=== PATIENT | female | born 1995 | race Caucasian/White ===

== ENCOUNTER 2018-07-26 10:52 | Inpatient (IN) ==
--- NOTE | 2018-07-26 11:13 | Emergency Department Note ---
ED Disposition Clinical Impression: Right lower quadrant pain Disposition: Still a Patient Condition on Discharge: Fair Referrals: Provider,Referral, [Primary Care Provider] - - Critical Care Critical Care Time: No Attestation: On , the high probability of a clinically significant, sudden or life t hreatening deterioration of the following system(s) required my full and direct attention, intervention and personal management. The time I documented below is in addition to time spent performing reported procedures but includes the following listed in this critical care notation. Medical Decision Making - Padilla Inquiry Pt receiving controlled substance: Yes Padilla was queried for this patient: No Risks and benefits of using a controlled substance: were not discussed with pt by me Vital Signs: 07/26/18 10:56 07/26/18 11:41 07/26/18 12:30 Temperature 99.3 F 100.3 F H Temperature Source Oral Oral Pulse Rate [Right Brachial] 92 H 90 69 Respiratory Rate 20 18 Blood Pressure [Right Arm] 129/57 L 121/68 123/71 Blood Pressure Mean [Right Arm] 81 85 88 Blood Pressure Source [Right Arm] Automatic Cuff Automatic Cuff Automatic Cuff Blood Pressure Position [Right Arm] Sitting Sitting Supine 02 Sat by Pulse Oximetry 97 97 97 Oxygen Delivery Method Room Air Room Air Room Air 07/26/18 13:10 07/26/18 14:00 07/26/18 14:08 Temperature 99.5 F Temperature Source Oral Pulse Rate [Right Brachial] 89 67 64 Respiratory Rate 18 18 Blood Pressure [Right Arm] 121/76 113/58 L 120/85 Blood Pressure Mean [Right Arm] 91 76 96 Blood Pressure Source [Right Arm] Automatic Cuff Automatic Cuff Manual Cuff/ Auscultation Blood Pressure Position [Right Arm] Sitting Supine Supine 02 Sat by Pulse Oximetry 94 L 97 98 Oxygen Delivery Method Room Air Room Air 07/26/18 14:30 Temperature 98.5 F Temperature Source Oral Pulse Rate [Right Brachial] 80 Respiratory Rate 18 Blood Pressure [Right Arm] 120/75 Blood Pressure Mean [Right Arm] 90 Blood Pressure Source [Right Arm] Manual Cuff/ Palpation Blood Pressure Position [Right Arm] Supine 02 Sat by Pulse Oximetry 98 Oxygen Delivery Method Room Air - Lab Data Lab Results 07/26/18 11:10: WBC 10.0, RBC 4.34, Hgb 12.1 L, Hct 37.2, MCV 85.6, MCH 27.9, MCHC 32.6, RDW 14.7, Plt Count 304, MPV 6.6 L, Neut % (Auto) 71.6, Lymph % (Auto) 20.5, [place] % (Auto) 6.9, Eos % (Auto) 0.7, Baso % (Auto) 0.3, Neut # (Auto) 7.1, Lymph # (Auto) 2.1, [place] # (Auto) 0.7, Eos # (Auto) 0.1, Baso # (Auto) 0.0 07/26/18 11:10: Sodium 139, Potassium 3.5, Chloride 102, Carbon Dioxide 26, Anion Gap 14.5, BUN 6 L, Creatinine 0.78, Estimated Creat Clear 109, Estimated GFR 92, Est GFR ( Amer) 111, Glucose 103, Calcium 8.2 L, Total Bilirubin 0.5, AST 12 L, ALT 37, Alkaline Phosphatase 88, Total Protein 7.2, Albumin 3.2 L , Globulin 4.0 H, Albumin/Globulin Ratio 0.8 L, Lipase 79 07/26/18 11:10: Serum HCG, Qual Negative 07/26/18 11:25: Urine Color Yellow, Urine Appearance Sl cloudy, Urine pH 6.0, Ur Specific [place] 1.015, Urine Protein Negative, Urine Glucose (UA) Negative, Urine Ketones Negative, Urine Blood Trace-l, Urine Nitrate Negative, Urine Bilirubin Negative, Urine Urobilinogen 0.2, Ur Leukocyte Esterase 1+ A, Urine RBC None, Urine WBC 3-5, Ur Squamous Epith Cells 5-10, Urine Bacteria 1+ 07/26/18 14:57: POC Glucose 94 Result diagrams: 07/26/18 11:10 07/26/18 11:10 Orders (Tests/Meds): ED MEDICATIONS Generic Name Dose Route Start Last Admin Trade Name Freq PRN Reason Stop Dose Admin Sodium Chloride 1,000 mls @ 125 mls/hr 07/26/18 13:45 07/26/18 13:59 Sod Chlor 0.9% 1000ml Bag IV 08/25/18 13:44 125 mls/hr .Q8H MATEO Administration Discontinued Medications Generic Name Dose Route Start Last Admin Trade Name Freq PRN Reason Stop Dose Admin Acetaminophen 650 mg 07/26/18 12:36 07/26/18 12:38 Acetaminophen 325mg Tab PO 07/26/18 12:37 650 mg ONCE ONE Administration Albuterol/Ipratropium 3 ml 07/26/18 13:16 07/26/18 13:34 Duoneb 3ml Neb IH 07/26/18 13:17 Not Given ONCE ONE Hydromorphone HCl 1 mg 07/26/18 13:44 07/26/18 14:10 Dilaudid 2mg/Ml Syringe IV 07/26/18 13:45 1 mg ONCE ONE Administration Ibuprofen 600 mg 07/26/18 13:44 07/26/18 13:58 Motrin 600mg Tablet PO 07/26/18 13:45 600 mg ONCE ONE Administration Iopamidol 75 ml 07/26/18 12:16 07/26/18 12:16 [id number]; 75ml Vial IV 07/26/18 12:17 75 ml ONCE ONE Administration Protocol Methylprednisolone Sodium Succinate 125 mg 07/26/18 13:16 07/26/18 13:34 Solu-Medrol 125mg/2ml Vial IV 07/26/18 13:17 Not Given ONCE ONE Morphine Sulfate 4 mg 07/26/18 11:18 07/26/18 11:40 Morphine 4mg/Ml Syringe IV 07/26/18 11:19 4 mg ONCE ONE Administration Morphine Sulfate 4 mg 07/26/18 12:30 07/26/18 12:33 Morphine 4mg/Ml Syringe IV 07/26/18 12:31 4 mg ONCE ONE Administration Ondansetron HCl 4 mg 07/26/18 11:18 07/26/18 11:40 Zofran 4mg/2ml Vial IV 07/26/18 11:19 4 mg ONCE ONE Administration Sodium Chloride 1,000 ml 07/26/18 11:19 07/26/18 11:40 Sod Chlor 0.9% 1000ml Bag IV 07/26/18 11:20 1,000 ml BOLUS ONE Administration Sodium Chloride 10 ml 07/26/18 12:16 07/26/18 12:16 Rad-Saline Flush 10ml Syringe IV 07/26/18 12:17 10 ml ONCE ONE Administration ORDERS Category Date Time Status Lactic Acid Stat Lab 07/26/18 11:10 Received Urinalysis and Microscopic Stat Lab 07/26/18 11:25 Ordered Blood Culture Stat Micro 07/26/18 11:10 Received Urine Culture Stat Micro 07/26/18 11:25 Received - CT Data CT Scan: Abdomen, Pelvis Time Received: 12:[address] Reviewed: Yes: I have viewed the radiologist's interpretation Findings Narrative: FINDINGS: The lung bases show no acute finding. There has been prior cholecystectomy. The liver, spleen, pancreas, adrenal glands, and kidneys have an unremarkable appearance. The appendix is poorly visualized. No definite evidence of appendicitis. No abscess, free air, or intestinal obstruction is apparent. No evidence of diverticulitis. Isodense changes are present in both ovaries suggesting bilateral ovarian cysts 2.8 cm on the right and 3.3 cm on the left. No pelvic mass or abnormal fluid collection is evident. There is degenerative disc disease at L5-S1 with mild retrolisthesis of L5. Mild edema is present in the abdominal wall and chronic nonspecific. IMPRESSION: 1. No acute abdominal or pelvic findings. No convincing evidence of appendicitis. 2. Bilateral ovarian cysts Dictated By: Leonid Leonard MD Signed By: <Electronically signed by Leonid Leonard MD in [place]> 07/26/18 1238 - Physician Consults Physician Consulted: Jose Time: 13:25 Reason -: Surgical Eval/Care Comment/Response: Requests that her [facility] physician be contacted for their input. Additional Consult: Owen Time: 14:06 Reason -: Gynocological Eval/Care Comment/Response: Doubts gynecologic source, but will consult. Request pelvic exam, cultures. Treat for PID with ampicillin, gentamicin, clindamycin. 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 He will consult. - Reevaluation(s) Time: 13:12 Reevaluation #1: Pain 6/2:10 doses of morphine. Still extremely tender in the right lower quadrant. Temperature has gone up. CT scan showed no convincing evidence of appendicitis, but appendix not well visualized and clinical presentation is concerning. Surgery consult. Medical Decision Narrative: 1:55 PM: No callback from patient's [facility]. Will consult [facility] at our facility. 3:15 PM: Seen by Dr. Weaver in the emergency department. He says he will admit to his service. I spoke with Dr. Garcia. He says patient can have clear liquids. General Adult HPI - General Chief complaint: Abdominal Pain Stated complaint: right side pain Time Seen by Provider: 07/26/18 11:12 Mode of Arrival: Ambulatory Limitations: No Limitations Description of Symptoms (Recalled from ER Triage Doc. by RN): right sided ab dominal pain since last night. Pt. had pain a couple months ago but it had eased up. Pt. now reports that pain is getting progressivly worse. - History of Present Illness HPI narrative: Complains of right lower quadrant abdominal pain since last night. Associated with nausea. States that she cannot urinate. No vomiting. Has chronic diarrhea. States that this is been a recurrent problem for the past 3 months. Occurs about once a month. Her last episode was a month ago and lasted several hours. This episode is worse, has lasted longer and is more severe. Previous episodes have been associated with vomiting. Passed blood in her stool a week or so ago. One sexual partner. No dyspareunia. No vaginal discharge. - Related Data Home Medications Medication Instructions Recorded Confirmed Levothyroxine Sodium [Synthroid 250 mcg PO DAILY 07/26/18 07/26/18 25mcg (0.025mg) tablet] Loratadine [Claritin] 10 mg PO DAILY 07/26/18 07/26/18 Losartan Potassium 50 mg PO DAILY 07/26/18 07/26/18 Metformin HCl 1,000 mg PO DAILY 07/26/18 07/26/18 Montelukast Sodium [Montelukast 10 mg PO DAILY 07/26/18 07/26/18 10mg Tab] Pnv95/Iron Fum/Folic Acid 1 each PO DAILY 07/26/18 07/26/18 [ Tablet] Sertraline HCl [Zoloft 50mg tablet] 50 mg PO DAILY 07/26/18 07/26/18 Sitagliptin Phosphate [Januvia 100 mg PO DAILY 07/26/18 07/26/18 100mg tablet] dilTIAZem HCl [Cartia Xt] 120 mg PO DAILY 07/26/18 07/26/18 glipiZIDE [Glipizide ER] 5 mg PO BID 07/26/18 07/26/18 Allergies Allergy/AdvReac Type Severity Reaction Status Date / Time latex Allergy Verified 07/26/18 11:37 [facility] History I have reviewed the patient's past medical history: Yes Medical History: Reports:: Diabetes Mellitus Type 2 Denies:: Internal Pacemaker Other Surgeries: Yes: Cholecystectomy. No: Pacemaker Amputation: No Fractures: No - Social History Educational Level: Completed High School Smoking Status: Never smoker Alcohol Intake: never - Psychiatric History Expresses thoughts of harming self/others: None Suicide Plan Description: No Plan ROS Obtained: Yes All systems reviewed & no additional complaints - Constitutional Constitutional: Denies fever(s) - Gastrointestinal Gastrointestingal: Reports: abdominal pain, diarrhea (chronic), nausea - Genitourinary Female Genitourinary: Reports as per HPI - Neurologic Neurologic: Reports headache(s) Physical Exam - General General appearance: alert - Head Head exam: atraumatic, normocephalic - Eye Eye exam: Present: normal appearance, PERRL, EOMI - ENT ENT exam: Present: mucous membranes moist - Neck Neck exam: Present: normal inspection, trachea midline - Chest Chest inspection: Present: normal inspection, symmetric chest wall rise - Respiratory Respiratory exam: Present: normal lung sounds bilaterally. Absent: respiratory distress - Cardiovascular Cardiovascular exam: Present: regular rate, normal rhythm, normal heart sounds - Abdominal Exam Abdominal exam: Present: soft, tenderness. Absent: distention, guarding, rebound Abdominal tenderness: Present: RUQ, RLQ Comment: Most tender in the right lower quadrant - External exam: Present: normal external exam Speculum exam: Present: normal speculum exam. Absent: vaginal discharge Bimanual exam: Present: normal bimanual exam. Absent: cervical motion tenderness, adnexal tenderness - Extremities Exam Extremities exam: Present: normal inspection - Neurological Exam Neurological exam: Present: alert, oriented X3 - Psychiatric Psychiatric exam: Present: anxious - Skin Skin exam: Present: warm, dry
[2018-07-26 11:28] LABS: Basophils % 0.3 % (0.1-2.0); Eosinophils # 0.1 K/mm3 (0.0-0.4); Eosinophils % 0.7 % (0.1-12.0); Hematocrit 37.2 % (37.0-47.0); Hemoglobin 12.1 g/dL (12.2-16.2); Lymphocytes # 2.1 K/mm3 (0.7-4.5); Lymphocytes % 20.5 % (10-50); Mean Corpuscular HGB Conc 32.6 g/dL (31.8-35.4); Mean Corpuscular Hemoglobin 27.9 pg (27.0-31.2); Mean Corpuscular Volume 85.6 fl (81-99); Mean Platelet Volume 6.6 fl (7.4-10.4); Monocytes # 0.7 K/mm3 (0.1-1.0); Monocytes % 6.9 % (1.7-9.3); Neutrophils # 7.1 K/mm3 (1.8-7.8); Neutrophils % 71.6 % (37.0-80.0); Platelet Count 304 K/mm3 (142-424); Red Blood Count 4.34 M/mm3 (4.20-5.40); Red Cell Distribution Width 14.7 % (11.5-17.5)
[2018-07-26 11:32] LABS: Microscopic, Urine URINE MICROSCOPIC (MICROSCOPIC)
[2018-07-26 11:33] LABS: Appearance,Urine SL CLOUDY (Clear); Bilirubin,Urine Negative (Negative); Blood, Urine TRACE-L (Negative); Color,Urine YELLOW (Yellow); Glucose,Urine (UA) Negative (Negative); Ketones,Urine Negative (Negative); Leukocyte Esterase,Urine 1+ (Negative); Protein,Urine Negative (Negative); Specific Gravity, Urine 1.015 (1.005-1.030); Urobilinogen,Urine 0.2 EU/dl (0.2)
[2018-07-26 11:35] LABS: Albumin Level 3.2 gm/dL (3.4-5.0); Albumin/Globulin Ratio 0.8 (1.1-1.8); Anion Gap 14.5 mEq/L (5-15); Bilirubin,Total 0.5 mg/dL (0.2-1.0); Calcium 8.2 mg/dL (8.5-10.1); Potassium 3.5 mmoL/L (3.5-5.1); Total Protein,Serum 7.2 gm/dL (6.4-8.2)
[2018-07-26 11:45] LABS: Bacteria,Urine 1+ /lpf
--- NOTE | 2018-07-26 15:26 | History & Physical Report ---
*Admission Date: 07/26/18 *Chief complaint: Right lower quadrant pain *History of present illness: She is a 23-year-old 1 para 0 who is not . She complains of a 3-month history of right lower quadrant pain. She says that today and she came into the ER. She had a CT scan that was essentially negative for appendicitis. There was no fluid in the pelvis. There were no cysts on the ovaries. She does not have a white count but her temperature has risen from 99-100 degrees. She has had some nausea associated with the right lower quadrant pain. She denies any new partners. Her partner denies any new partners. She has a history of having had her gallbladder removed. She has type 2 di abetes. She is morbidly obese. She has hypertension as well as a problem with her heart. She does not know what the problem is. She does take diltiazem for this. [facility] History I have reviewed the patient's past medical history: Yes Medical History: Reports:: Diabetes Mellitus Type 2 Denies:: Internal Pacemaker Other Surgeries: Yes: Cholecystectomy. No: Pacemaker Amputation: No Fractures: No - *Social History Educational Level: Completed High School Smoking Status: Never smoker Alcohol Intake: never - Psychiatric History Expresses thoughts of harming self/others: None Suicide Plan Description: No Plan Review of Systems - Review of Systems Review of systems:: pertinent systems reviewed and negative unless documented below - *Neurologic Reports headache(s) Meds Home Medications Medication Instructions Recorded Confirmed Type Levothyroxine Sodium [Synthroid 250 mcg PO DAILY 07/26/18 07/26/18 History 25mcg (0.025mg) tablet] Loratadine [Claritin] 10 mg PO DAILY 07/26/18 07/26/18 History Losartan Potassium 50 mg PO DAILY 07/26/18 07/26/18 History Metformin HCl 1,000 mg PO DAILY 07/26/18 07/26/18 History Montelukast Sodium [Montelukast 10 mg PO DAILY 07/26/18 07/26/18 History 10mg Tab] Pnv95/Iron Fum/Folic Acid 1 each PO DAILY 07/26/18 07/26/18 History [ Tablet] Sertraline HCl [Zoloft 50mg tablet] 50 mg PO DAILY 07/26/18 07/26/18 History Sitagliptin Phosphate [Januvia 100 mg PO DAILY 07/26/18 07/26/18 History 100mg tablet] dilTIAZem HCl [Cartia Xt] 120 mg PO DAILY 07/26/18 07/26/18 History glipiZIDE [Glipizide ER] 5 mg PO BID 07/26/18 07/26/18 History Allergies Allergy/AdvReac Type Severity Reaction Status Date / Time latex Allergy Verified 07/26/18 11:37 Exam Vital signs and Labs for Last 24 Hours: Temp Pulse Resp BP Pulse Ox 98.5 F 80 18 120/75 98 07/26/18 14:30 07/26/18 14:30 07/26/18 14:30 07/26/18 14:30 07/26/18 14:30 Laboratory Results - last 24 hr 07/26/18 11:10: WBC 10.0, RBC 4.34, Hgb 12.1 L, Hct 37.2, MCV 85.6, MCH 27.9, MCHC 32.6, RDW 14.7, Plt Count 304, MPV 6.6 L, Neut % (Auto) 71.6, Lymph % (Auto) 20.5, [place] % (Auto) 6.9, Eos % (Auto) 0.7, Baso % (Auto) 0.3, Neut # (Auto) 7.1, Lymph # (Auto) 2.1, [place] # (Auto) 0.7, Eos # (Auto) 0.1, Baso # (Auto) 0.0 07/26/18 11:10: Sodium 139, Potassium 3.5, Chloride 102, Carbon Dioxide 26, Anion Gap 14.5, BUN 6 L, Creatinine 0.78, Estimated Creat Clear 109, Estimated GFR 92, Est GFR ( Amer) 111, Glucose 103, Calcium 8.2 L, Total Bilirubin 0.5, AST 12 L, ALT 37, Alkaline Phosphatase 88, Total Protein 7.2, Albumin 3.2 L , Globulin 4.0 H, Albumin/Globulin Ratio 0.8 L, Lipase 79 07/26/18 11:10: Serum HCG, Qual Negative 07/26/18 11:25: Urine Color Yellow, Urine Appearance Sl cloudy, Urine pH 6.0, Ur Specific [place] 1.015, Urine Protein Negative, Urine Glucose (UA) Negative, Urine Ketones Negative, Urine Blood Trace-l, Urine Nitrate Negative, Urine Bilirubin Negative, Urine Urobilinogen 0.2, Ur Leukocyte Esterase 1+ A, Urine RBC None, Urine WBC 3-5, Ur Squamous Epith Cells 5-10, Urine Bacteria 1+ 07/26/18 14:57: POC Glucose 94 I & O for Last 24 hours: Intake & Output 07/24/18 07/25/18 07/26/18 07/27/18 11:59 11:59 11:59 11:59 Weight 307 lb - Constitutional no acute distress, morbidly obese - *Routine HEENT Exam Head: Present: normocephalic Eye: Present: EOMI, PERRL ENT: Present: mucous membranes moist - *Routine Neck Exam Present: supple, full ROM - *Routine Respiratory Exam Absent: accessory muscle use (good air entry bilaterally), wheezes, crackles - *Routine Cardiovascular Exam Present: RRR. Absent: murmur - *Routine Abdominal Exam Present: soft, normoactive bowel sounds, tenderness. Absent: rebound, guarding, mass Comments: She has right lower quadrant tenderness. She is quite tender when I examined her in [place] - *Routine Rectal Exam Patient deferred: visual exam, digital exam - *Routine Exam Patient deferred: external exam, groin exam, perineal exam - *Routine Extremities Exam Present: full ROM. Absent: cyanosis, edema, calf tenderness - *Routine Skin Exam Present: intact (good color) - *Routine Neurological Exam Present: alert, oriented X3 - Routine Psychiatric Exam Present: normal affect H&P: Result - Impressions She has severe right lower quadrant pain. At this point in time we cannot rule out appendicitis. She does have a mild low-grade temperature. We will go ahead and start antibiotics. Assessment and Plan (1) Right lower quadrant abdominal pain Current visit: Yes Status: Acute Category: Medical Code(s): R10.31 - Right lower quadrant pain (2) Type 2 diabetes mellitus Current visit: Yes Status: Acute Category: Medical Code(s): E11.9 - Type 2 diabetes mellitus without complications (3) Morbid obesity Current visit: Yes Status: Acute Category: Medical Code(s): E66.01 - Morbid (severe) obesity due to excess calories (4) Hypertension Current visit: Yes Status: Acute Category: Medical Code(s): I10 - Essential (primary) hypertension - Assessment and plan all Dx Assessment and Plan for all problems:: We will go ahead and admit her for possible appendicitis. We will start antibiotics. We will start clindamycin, gentamicin and ampicillin. We will observe her overnight. If she gets any worse or she gets a fever we will c onsider a laparoscopy with possible appendectomy. She has been seen by Dr. Garcia in general surgery. His point in time he did not feel that she had appendicitis given her negative CT findings.
--- NOTE | 2018-07-26 16:15 | Consult Report ---
*Admission Date: 07/26/18 *Chief complaint: Right-sided abdominal pain, nausea *History of present illness: This is a 23-year-old female seen in consultation from Dr. Buckner in the Emergency Department and Dr. Weaver (her admitting physician) for further evaluation regarding right lower quadrant abdominal pain. She presented to the emergency department with increasing pain mostly in the right lower quadrant and right mid abdomen. She has had low-grade fevers over the past 24 hours. Her appetite is poor. + nausea, but no emesis. She has had fairly consistent nausea with her pain over the past 3 months. She has chronic "loose stools", but no recent changes in her bowel habits. Evaluation has inc luded a CT scan that revealed bilateral ovarian cyst and no definitive changes consistent with appendicitis. Please see impression below: IMPRESSION: 1. No acute abdominal or pelvic findings. No convincing evidence of appendicitis. 2. Bilateral ovarian cysts Review of Systems - Constitutional Reports anorexia, Denies chills - Eyes Denies change in vision - ENT Denies change in voice - *Cardiovascular Denies chest pain - *Respiratory Denies cough - *Gastrointestinal Reports abdominal pain, Reports loose stools, Denies black, tarry stools, Denies nausea - *Genitourinary Denies abnormal vaginal bleeding - *Musculoskeletal Denies abnormal walking - *Neurologic Reports headache(s) - Psychiatric Denies anxiety - Hematologic/Lymphatic Denies easy bleeding [facility] History Medical History: Reports:: Diabetes Mellitus Type 2 Denies:: Internal Pacemaker Other Surgeries: Yes: Cholecystectomy. No: Pacemaker Amputation: No Fractures: No - *Social History Educational Level: Completed High School Smoking Status: Never smoker Alcohol Intake: never - Psychiatric History Expresses thoughts of harming self/others: None Suicide Plan Description: No Plan Meds Home Medications Medication Instructions Recorded Confirmed Type Levothyroxine Sodium [Synthroid 250 mcg PO DAILY 07/26/18 07/26/18 History 25mcg (0.025mg) tablet] Loratadine [Claritin] 10 mg PO DAILY 07/26/18 07/26/18 History Losartan Potassium 50 mg PO DAILY 07/26/18 07/26/18 History Metformin HCl 1,000 mg PO DAILY 07/26/18 07/26/18 History Montelukast Sodium [Montelukast 10 mg PO DAILY 07/26/18 07/26/18 History 10mg Tab] Pnv95/Iron Fum/Folic Acid 1 each PO DAILY 07/26/18 07/26/18 History [ Tablet] Sertraline HCl [Zoloft 50mg tablet] 50 mg PO DAILY 07/26/18 07/26/18 History Sitagliptin Phosphate [Januvia 100 mg PO DAILY 07/26/18 07/26/18 History 100mg tablet] dilTIAZem HCl [Cartia Xt] 120 mg PO DAILY 07/26/18 07/26/18 History glipiZIDE [Glipizide ER] 5 mg PO BID 07/26/18 07/26/18 History Allergies Allergy/AdvReac Type Severity Reaction Status Date / Time latex Allergy Verified 07/26/18 11:37 Exam Vital signs and Labs for Last 24 Hours: Temp Pulse Resp BP Pulse Ox 98.2 F 64 18 120/70 97 07/26/18 16:00 07/26/18 16:00 07/26/18 16:00 07/26/18 16:00 07/26/18 16:00 Laboratory Results - last 24 hr 07/26/18 11:10: WBC 10.0, RBC 4.34, Hgb 12.1 L, Hct 37.2, MCV 85.6, MCH 27.9, MCHC 32.6, RDW 14.7, Plt Count 304, MPV 6.6 L, Neut % (Auto) 71.6, Lymph % (Auto) 20.5, [place] % (Auto) 6.9, Eos % (Auto) 0.7, Baso % (Auto) 0.3, Neut # (Auto) 7.1, Lymph # (Auto) 2.1, [place] # (Auto) 0.7, Eos # (Auto) 0.1, Baso # (Auto) 0.0 07/26/18 11:10: Sodium 139, Potassium 3.5, Chloride 102, Carbon Dioxide 26, Anion Gap 14.5, BUN 6 L, Creatinine 0.78, Estimated Creat Clear 109, Estimated GFR 92, Est GFR ( Amer) 111, Glucose 103, Calcium 8.2 L, Total Bilirubin 0.5, AST 12 L, ALT 37, Alkaline Phosphatase 88, Total Protein 7.2, Albumin 3.2 L , Globulin 4.0 H, Albumin/Globulin Ratio 0.8 L, Lipase 79 07/26/18 11:10: Serum HCG, Qual Negative 07/26/18 11:25: Urine Color Yellow, Urine Appearance Sl cloudy, Urine pH 6.0, Ur Specific [place] 1.015, Urine Protein Negative, Urine Glucose (UA) Negative, Urine Ketones Negative, Urine Blood Trace-l, Urine Nitrate Negative, Urine Bilirubin Negative, Urine Urobilinogen 0.2, Ur Leukocyte Esterase 1+ A, Urine RBC None, Urine WBC 3-5, Ur Squamous Epith Cells 5-10, Urine Bacteria 1+ 07/26/18 14:57: POC Glucose 94 I & O for Last 24 hours: Intake & Output 07/24/18 07/25/18 07/26/18 07/27/18 11:59 11:59 11:59 11:59 Weight 307 lb - *Routine Respiratory Exam Absent: respiratory distress - *Routine Cardiovascular Exam Present: RRR - *Routine Abdominal Exam Present: soft, tenderness. Absent: distended, rebound, guarding, firm, rigid Comments: mostly in right mid and lower abd (somewhat in RUQ as well) Results - Labs 07/26/18 11:10 07/26/18 11:10 Laboratory Results - last 24 hr 07/26/18 11:10: WBC 10.0, RBC 4.34, Hgb 12.1 L, Hct 37.2, MCV 85.6, MCH 27.9, MCHC 32.6, RDW 14.7, Plt Count 304, MPV 6.6 L, Neut % (Auto) 71.6, Lymph % (Auto) 20.5, [place] % (Auto) 6.9, Eos % (Auto) 0.7, Baso % (Auto) 0.3, Neut # (Auto) 7.1, Lymph # (Auto) 2.1, [place] # (Auto) 0.7, Eos # (Auto) 0.1, Baso # (Auto) 0.0 07/26/18 11:10: Sodium 139, Potassium 3.5, Chloride 102, Carbon Dioxide 26, Anion Gap 14.5, BUN 6 L, Creatinine 0.78, Estimated Creat Clear 109, Estimated GFR 92, Est GFR ( Amer) 111, Glucose 103, Calcium 8.2 L, Total Bilirubin 0.5, AST 12 L, ALT 37, Alkaline Phosphatase 88, Total Protein 7.2, Albumin 3.2 L , Globulin 4.0 H, Albumin/Globulin Ratio 0.8 L, Lipase 79 07/26/18 11:10: Serum HCG, Qual Negative 07/26/18 11:25: Urine Color Yellow, Urine Appearance Sl cloudy, Urine pH 6.0, Ur Specific [place] 1.015, Urine Protein Negative, Urine Glucose (UA) Negative, Urine Ketones Negative, Urine Blood Trace-l, Urine Nitrate Negative, Urine Bilirubin Negative, Urine Urobilinogen 0.2, Ur Leukocyte Esterase 1+ A, Urine RBC None, Urine WBC 3-5, Ur Squamous Epith Cells 5-10, Urine Bacteria 1+ 07/26/18 14:57: POC Glucose 94 - Imaging CT scan - abdomen: report reviewed, image reviewed CT scan - pelvis: report reviewed, image reviewed Assessment and Plan (1) Right lower quadrant abdominal pain Current visit: Yes Status: Acute Category: Medical Code(s): R10.31 - Right lower quadrant pain Currently, the etiology is undetermined. Although the patient does have right lower quadrant pain and appendicitis has not completely ruled out...certain aspects of her evaluation are not consistent with this diagnosis. Specifically, the patient has had "on and off symptoms" for about 3 months. This is not consistent with acute appendicitis. The patient also does not have a leukocytosis and does not have a "left shift". In addition, I have reviewed the CT scan with radiology and she has absolutely no inflammatory changes in the right lower quadrant consistent with appendicitis. The quality of the CT scan is good and she did have IV contrast. Serial abdominal exams will be ongoing. Repeat CBC in a.m. (2) Type 2 diabetes mellitus Current visit: Yes Status: Acute Category: Medical Code(s): E11.9 - Type 2 diabetes mellitus without complications (3) Morbid obesity Current visit: Yes Status: Acute Category: Medical Code(s): E66.01 - Morbid (severe) obesity due to excess calories (4) Hypertension Current visit: Yes Status: Acute Category: Medical Code(s): I10 - Essential (primary) hypertension
--- NOTE | 2018-07-27 06:46 | Progress Note ---
Subjective Patient reports: no new complaints, pain is less (Pain is now 6 out of 10), nausea Exam Vital signs and Labs for Last 24 Hours: Temp Pulse Resp BP Pulse Ox 99.0 F 101 H 16 142/92 H 96 07/27/18 04:00 07/27/18 04:00 07/27/18 04:00 07/27/18 04:00 07/27/18 04:00 Laboratory Results - last 24 hr 07/26/18 11:10: WBC 10.0, RBC 4.34, Hgb 12.1 L, Hct 37.2, MCV 85.6, MCH 27.9, MCHC 32.6, RDW 14.7, Plt Count 304, MPV 6.6 L, Neut % (Auto) 71.6, Lymph % (Auto) 20.5, [place] % (Auto) 6.9, Eos % (Auto) 0.7, Baso % (Auto) 0.3, Neut # (Auto) 7.1, Lymph # (Auto) 2.1, [place] # (Auto) 0.7, Eos # (Auto) 0.1, Baso # (Auto) 0.0 07/26/18 11:10: Sodium 139, Potassium 3.5, Chloride 102, Carbon Dioxide 26, Anion Gap 14.5, BUN 6 L, Creatinine 0.78, Estimated Creat Clear 109, Estimated GFR 92, Est GFR ( Amer) 111, Glucose 103, Calcium 8.2 L, Total Bilirubin 0.5, AST 12 L, ALT 37, Alkaline Phosphatase 88, Total Protein 7.2, Albumin 3.2 L , Globulin 4.0 H, Albumin/Globulin Ratio 0.8 L, Lipase 79 07/26/18 11:10: Serum HCG, Qual Negative 07/26/18 11:10: Lactate 0.9 07/26/18 11:25: Urine Color Yellow, Urine Appearance Sl cloudy, Urine pH 6.0, Ur Specific [place] 1.015, Urine Protein Negative, Urine Glucose (UA) Negative, Urine Ketones Negative, Urine Blood Trace-l, Urine Nitrate Negative, Urine Bilirubin Negative, Urine Urobilinogen 0.2, Ur Leukocyte Esterase 1+ A, Urine RBC None, Urine WBC 3-5, Ur Squamous Epith Cells 5-10, Urine Bacteria 1+ 07/26/18 14:57: POC Glucose 94 07/26/18 16:27: POC Glucose 82 07/26/18 21:20: POC Glucose 117 H I & O for Last 24 hours: Intake & Output 07/24/18 07/25/18 07/26/18 07/27/18 11:59 11:59 11:59 11:59 Intake Total 620 / 620 Balance 620 / 620 Weight 307 lb 323 lb 9 oz Microbiology Reports for the Last 24 Hours: Microbiology 07/26/18 16:00 Vaginal Wet Prep - Final - Constitutional no acute distress - *Routine Respiratory Exam Absent: respiratory distress - *Routine Abdominal Exam Present: soft Comments: The patient's right-sided tenderness to palpation has somewhat decreased; however, she is more tender at the umbilicus. Progress Note: A&P (1) Right lower quadrant abdominal pain Status: Acute Assessment and plan: The patient's right-sided pain has somewhat decreased. She is increasingly nauseous and her pain is mostly now at the umbilicus. She continues to state that her symptoms are very similar to what she has suffered for the last 3 months (although somewhat more severe this time). Overall, the patient's findings are somewhat equivocal and appendicitis has not been completely ruled out. However, multiple aspects of her presentation are not consistent with appendicitis. The timeframe of her symptoms, her normal white blood cell count (without shift), and lack of inflammatory changes in the right lower quadrant on CT all seemingly make appendicitis less likely diagnosis. Maintain clear liquid diet for now. Continue serial abdominal exams. Follow-up morning labs. Current Visit: Yes (2) Type 2 diabetes mellitus Status: Acute Current Visit: Yes (3) Morbid obesity Status: Acute Current Visit: Yes (4) Hypertension Status: Acute Current Visit: Yes
[2018-07-27 07:00] LABS: Basophils % 0.2 % (0.1-2.0); Eosinophils # 0.1 K/mm3 (0.0-0.4); Eosinophils % 0.7 % (0.1-12.0); Lymphocytes # 1.9 K/mm3 (0.7-4.5); Mean Corpuscular Hemoglobin 27.8 pg (27.0-31.2); Mean Corpuscular Volume 86.8 fl (81-99); Mean Platelet Volume 6.4 fl (7.4-10.4); Monocytes # 0.7 K/mm3 (0.1-1.0); Monocytes % 7.1 % (1.7-9.3); Neutrophils # 6.8 K/mm3 (1.8-7.8); Platelet Count 280 K/mm3 (142-424); Red Blood Count 3.89 M/mm3 (4.20-5.40); Red Cell Distribution Width 14.6 % (11.5-17.5); White Blood Count 9.5 K/mm3 (4.8-10.8)
--- NOTE | 2018-07-27 07:22 | Pharmacy Consult Notes ---
[facility] Pharmacy VTE Monitoring - Patient Demographics Admission date: 07/26/18 Report Date: 07/27/18 Time: 07:22 Allergies/Adverse Reactions: Patient Allergies latex Allergy (Verified 07/26/18 11:37) Height: 1.7 m Weight: 146.765 kg Patient Problems: Current Active Problems Right lower quadrant abdominal pain (Acute) Type 2 diabetes mellitus (Acute) Morbid obesity (Acute) Hypertension (Acute) - VTE Risk Labs: VTE Related Lab Results Hgb 12.1 g/dL (12.2-16.2) L 07/26/18 11:10 Hct 37.2 % (37.0-47.0) 07/26/18 11:10 Plt Count 304 K/mm3 (142-424) 07/26/18 11:10 BUN 6 mg/dL (7-18) L 07/26/18 11:10 Creatinine 0.78 mg/dL (0.55-1.02) 07/26/18 11:10 Estimated Creat Clear 109 mL/min (50-200) 07/26/18 11:10 VTE Score: 1 VTE Risk Level: Very Low Risk - Prophylaxis VTE Prophylaxis Ordered?: Yes Types of VTE Prophylaxis: TEDS Knee High Location of Applied Device: Bilateral Lower Extremeties - VTE Diagnosis Confirmed Treatment or plan recommended: Continue Current Treatment
[2018-07-27 07:36] LABS: Hematocrit 33.9 % (37.0-47.0); Hemoglobin 11.1 g/dL (12.2-16.2)
--- NOTE | 2018-07-27 08:02 | Progress Note ---
Internal Medicine - PN: Subj *Date: 07/27/18 *Time: 08:00 Interval history: She has done reasonably well overnight. She complains mostly of nausea this morning. She says that her pain has improved slightly. She has not thrown up but is just nauseous. Is receiving IV antibiotics. She is receiving ampicillin, clindamycin and gentamicin. Exam Vital signs and Labs for Last 24 Hours: Temp Pulse Resp BP Pulse Ox 99.0 F 101 H 16 142/92 H 96 07/27/18 04:00 07/27/18 04:00 07/27/18 04:00 07/27/18 04:00 07/27/18 04:00 Laboratory Results - last 24 hr 07/26/18 11:10: WBC 10.0, RBC 4.34, Hgb 12.1 L, Hct 37.2, MCV 85.6, MCH 27.9, MCHC 32.6, RDW 14.7, Plt Count 304, MPV 6.6 L, Neut % (Auto) 71.6, Lymph % (Auto) 20.5, [place] % (Auto) 6.9, Eos % (Auto) 0.7, Baso % (Auto) 0.3, Neut # (Auto) 7.1, Lymph # (Auto) 2.1, [place] # (Auto) 0.7, Eos # (Auto) 0.1, Baso # (Auto) 0.0 07/26/18 11:10: Sodium 139, Potassium 3.5, Chloride 102, Carbon Dioxide 26, Anion Gap 14.5, BUN 6 L, Creatinine 0.78, Estimated Creat Clear 109, Estimated GFR 92, Est GFR ( Amer) 111, Glucose 103, Calcium 8.2 L, Total Bilirubin 0.5, AST 12 L, ALT 37, Alkaline Phosphatase 88, Total Protein 7.2, Albumin 3.2 L , Globulin 4.0 H, Albumin/Globulin Ratio 0.8 L, Lipase 79 07/26/18 11:10: Serum HCG, Qual Negative 07/26/18 11:10: Lactate 0.9 07/26/18 11:25: Urine Color Yellow, Urine Appearance Sl cloudy, Urine pH 6.0, Ur Specific [place] 1.015, Urine Protein Negative, Urine Glucose (UA) Negative, Urine Ketones Negative, Urine Blood Trace-l, Urine Nitrate Negative, Urine Bilirubin Negative, Urine Urobilinogen 0.2, Ur Leukocyte Esterase 1+ A, Urine RBC None, Urine WBC 3-5, Ur Squamous Epith Cells 5-10, Urine Bacteria 1+ 07/26/18 14:57: POC Glucose 94 07/26/18 16:27: POC Glucose 82 07/26/18 21:20: POC Glucose 117 H 07/27/18 06:44: WBC 9.5, RBC 3.89 L, Hgb 11.1 L, Hct 33.9 L, MCV 86.8, MCH 27.8, MCHC 32.0, RDW 14.6, Plt Count 280, MPV 6.4 L, Neut % (Auto) 72.0, Lymph % (Auto) 20.0, [place] % (Auto) 7.1, Eos % (Auto) 0.7, Baso % (Auto) 0.2, Neut # (Auto) 6.8, Lymph # (Auto) 1.9, [place] # (Auto) 0.7, Eos # (Auto) 0.1, Baso # (Auto) 0.0 07/27/18 06:44: POC Glucose 107 I & O for Last 24 hours: Intake & Output 07/24/18 07/25/18 07/26/18 07/27/18 11:59 11:59 11:59 11:59 Intake Total 620 / 620 Balance 620 / 620 Weight 307 lb 323 lb 9 oz Microbiology Reports for the Last 24 Hours: Microbiology 07/26/18 11:25 Urine,Clean Catch Urine Culture - Preliminary Gram Negative Rods 07/26/18 16:00 Vaginal Wet Prep - Final - Constitutional no acute distress, morbidly obese - *Routine HEENT Exam Head: Present: normocephalic Eye: Present: EOMI, PERRL ENT: Present: mucous membranes moist - *Routine Abdominal Exam Present: soft, normoactive bowel sounds, tenderness. Absent: rebound, guarding, mass Comments: She is tender around the umbilicus and towards the right lower quadrant. There are no peritoneal signs. Assessment and Plan (1) Right lower quadrant abdominal pain Current visit: Yes Status: Acute Category: Medical Code(s): R10.31 - Right lower quadrant pain (2) Type 2 diabetes mellitus Current visit: Yes Status: Acute Category: Medical Code(s): E11.9 - Type 2 diabetes mellitus without complications (3) Morbid obesity Current visit: Yes Status: Acute Category: Medical Code(s): E66.01 - Morbid (severe) obesity due to excess calories (4) Hypertension Current visit: Yes Status: Acute Category: Medical Code(s): I10 - Essential (primary) hypertension - Assessment and plan all Dx Assessment and Plan for all problems:: She has been on antibiotics overnight. We have given her some Phenergan as well as Zofran for her nausea. Her white count has gone from 10.0-9.5. She has a low-grade temperature at 99 degrees. We will continue to observe her. If her pain gets worse or if she comes febrile we will plan laparoscopy with possible appendectomy. She is stable at this point in time. We will continue to observe her for the next 24 hours.
--- NOTE | 2018-07-28 06:38 | Progress Note ---
Subjective Patient reports: other Narrative: She states that her pain is "a little bit better". She rates her pain now as a "5 out of 10". She remains quite nauseous and is alternating between Phenergan and Zofran. She does remain "sore on the right and in the middle". Exam Vital signs and Labs for Last 24 Hours: Temp Pulse Resp BP Pulse Ox 98.1 F 75 16 127/75 100 07/27/18 20:00 07/27/18 20:00 07/27/18 20:00 07/27/18 20:00 07/27/18 20:00 Laboratory Results - last 24 hr 07/26/18 11:25: Urine Color Yellow, Urine Appearance Sl cloudy, Urine pH 6.0, Ur Specific [place] 1.015, Urine Protein Negative, Urine Glucose (UA) Negative, Urine Ketones Negative, Urine Blood Trace-l, Urine Nitrate Negative, Urine Bilirubin Negative, Urine Urobilinogen 0.2, Ur Leukocyte Esterase 1+ A, Urine RBC None, Urine WBC 3-5, Ur Squamous Epith Cells 5-10, Urine Bacteria 1+ 07/27/18 06:44: WBC 9.5, RBC 3.89 L, Hgb 11.1 L, Hct 33.9 L, MCV 86.8, MCH 27.8, MCHC 32.0, RDW 14.6, Plt Count 280, MPV 6.4 L, Neut % (Auto) 72.0, Lymph % (Auto) 20.0, [place] % (Auto) 7.1, Eos % (Auto) 0.7, Baso % (Auto) 0.2, Neut # (Auto) 6.8, Lymph # (Auto) 1.9, [place] # (Auto) 0.7, Eos # (Auto) 0.1, Baso # (Auto) 0.0 07/27/18 06:44: POC Glucose 107 07/27/18 11:03: POC Glucose 139 H 07/27/18 16:28: POC Glucose 89 07/27/18 20:22: POC Glucose 108 07/28/18 06:13: POC Glucose 160 H I & O for Last 24 hours: Intake & Output 07/25/18 07/26/18 07/27/18 07/28/18 11:59 11:59 11:59 11:59 Intake Total 2937 / 2937 1928 / 1928 Balance 2936 / 7 1927 Weight 307 lb 323 lb 9 oz Microbiology Reports for the Last 24 Hours: Microbiology 07/26/18 11:25 Urine,Clean Catch Urine Culture - Final Escherichia coli - Constitutional no acute distress - *Routine Respiratory Exam Absent: respiratory distress - *Routine Cardiovascular Exam Present: RRR - *Routine Abdominal Exam Present: soft Comments: She remains somewhat tender along the mid abdomen and along the entire right abd omen. Her tenderness to palpation has improved somewhat from prior evaluations. Progress Note: A&P (1) Right lower quadrant abdominal pain Status: Acute Assessment and plan: Overall, the patient's pain continues to slowly improve. She does continue to have "soreness" and some tenderness to palpation in the right abdomen. She also has similar symptoms in the mid abdomen. She is afebrile with stable and normal vital signs. Her white blood cell count is normal and there is no left shift. She has had a CT scan in the emergency department that shows no signs consistent with appendicitis. Current Visit: Yes (2) Type 2 diabetes mellitus Status: Acute Current Visit: Yes (3) Morbid obesity Status: Acute Current Visit: Yes (4) Hypertension Status: Acute Current Visit: Yes (5) Nausea and vomiting Status: Acute Assessment and plan: Possibly secondary to gastroenteritis. Definitive etiology uncertain. Continue Zofran and Phenergan for now. Gastroenterology consultation pending. Current Visit: Yes
--- NOTE | 2018-07-28 09:29 | Progress Note ---
Internal Medicine - PN: Subj *Date: 07/28/18 *Time: 09:27 Interval history: She says she is doing a little better this morning. She says that her pain has improved. She still has some nausea. She had vomiting last night but none since. Denies any fever or chills. Exam Vital signs and Labs for Last 24 Hours: Temp Pulse Resp BP Pulse Ox 97.4 F L 71 16 141/67 H 95 07/28/18 08:00 07/28/18 08:00 07/28/18 08:00 07/28/18 08:00 07/28/18 08:00 Laboratory Results - last 24 hr 07/27/18 11:03: POC Glucose 139 H 07/27/18 16:28: POC Glucose 89 07/27/18 20:22: POC Glucose 108 07/28/18 06:13: POC Glucose 160 H I & O for Last 24 hours: Intake & Output 07/25/18 07/26/18 07/27/18 07/28/18 11:59 11:59 11:59 11:59 Intake Total 2937 / 2937 4254 / 4254 Balance 2937 / 2937 4254 / 4254 Weight 307 lb 323 lb 9 oz Microbiology Reports for the Last 24 Hours: Microbiology 07/26/18 11:25 Urine,Clean Catch Urine Culture - Final Escherichia coli - Constitutional no acute distress, morbidly obese - *Routine Abdominal Exam Present: soft, normoactive bowel sounds, tenderness. Absent: rebound, guarding, mass Assessment and Plan (1) Right lower quadrant abdominal pain Current visit: Yes Status: Acute Category: Medical Code(s): R10.31 - Right lower quadrant pain (2) Type 2 diabetes mellitus Current visit: Yes Status: Acute Category: Medical Code(s): E11.9 - Type 2 diabetes mellitus without complications (3) Morbid obesity Current visit: Yes Status: Acute Category: Medical Code(s): E66.01 - Morbid (severe) obesity due to excess calories (4) Hypertension Current visit: Yes Status: Acute Category: Medical Code(s): I10 - Essential (primary) hypertension (5) Nausea and vomiting Current visit: Yes Status: Acute Category: Medical Code(s): R11.2 - Nausea with vomiting, unspecified - Assessment and plan all Dx Assessment and Plan for all problems:: She will be seen by GI this morning and she was seen by Dr. Garcia. We will go ahead and start feeding her this morning since she is doing a little better. If she does well throughout the day we will consider sending her home later today.
--- NOTE | 2018-07-28 13:16 | Consult Report ---
*Admission Date: 07/26/18 *History of present illness: Gastroenterology Consultation Date of Service-July 28, 2018 History of Present Illness: Mrs. Davis is a 23-year-old female who has had right lower quadrant abdominal pain for 3 months. This is a twisting and gripping pain which can be acute. Sometimes it is excruciating. The patient reports no gassiness or bloating. She has had nausea, belching and some hiccups. She reports no bright red rectal bleeding, weight loss or family history of ulcer disease. Her father had colon cancer in his 30s. Her paternal grandmother had diverticulitis with colon surgery. The patient has had nausea and vomiting. She has been evaluated with CT scan of the abdomen and pelvis t hat showed bilateral ovarian cyst but certainly no evidence of appendicitis. She is seeing Dr. Weaver/gynecology and there is no etiology for the pain from pelvic standpoint. She has no fever, chills, hematochezia or melena. Past Medical History: Type 2 diabetes mellitus Past Surgical History: Laparoscopic cholecystectomy 2007 Medications: Januvia and metformin ALLERGIES: Latex allergy Social History: The patient is and lives in [facility]. Family History: Noncontributory/as above Review of Systems: Negative Physical Exam: HEENT normocephalic atraumatic EOMI anicteric neck supple no lymphadenopathy cardiovascular regular rate and rhythm chest clear to auscultation abdomen normoactive bowel sounds soft, nondistended, tenderness in the epigastrium and right lower quadrant, no rebound or guarding, no masses, no hepatosplenomegaly, extremities no edema Labs: Within normal limits Radiology: See CAT scan report Impression/Plan: 1. Right lower quadrant abdominal pain. I do feel that this is functional bowel disease/IBS with visceral sensitivity. I would consider adding dicyclomine Bentyl or even a serotonin agent (BuSpar). This should be managed as an outpatient and I do not see a reason for her to be in the hospital. She can follow-up as an outpatient with gastroenterology. This is a 23-year-old female seen in consultation from Dr. Buckner in the E mergency Department and Dr. Weaver (her admitting physician) for further evaluation regarding right lower quadrant abdominal pain. She presented to the emergency department with increasing pain mostly in the right lower quadrant and right mid abdomen. She has had low-grade fevers over the past 24 hours. Her appetite is poor. + nausea, but no emesis. She has had fairly consistent nausea with her pain over the past 3 months. She has chronic "loose stools", but no recent changes in her bowel habits. Evaluation has included a CT scan that revealed bilateral ovarian cyst and no definitive ch anges consistent with appendicitis. Please see impression below: IMPRESSION: 1. No acute abdominal or pelvic findings. No convincing evidence of appendicitis. 2. Bilateral ovarian cysts [facility] History Medical History: Reports:: Diabetes Mellitus Type 2 Denies:: Cancer, Diabetes Mellitus Type 1, Internal Pacemaker, MRSA Other Medical History: Reports: Arthritis Other Surgeries: Yes: Cholecystectomy. No: Pacemaker Amputation: No Fractures: No - *Social History Educational Level: Attended College Smoking Status: Never smoker Alcohol Intake: never Occupational Status: employed Housing: house Household Members: significant other - Psychiatric History Expresses thoughts of harming self/others: None Suicide Plan Description: No Plan *Family Hx:: Asthma, Cancer, Diabetes, Heart Attack, Hyperlipidemia, Hypertension, Stroke Review of Systems - *Neurologic Reports headache(s), Denies abnormal walking Meds Home Medications Medication Instructions Recorded Confirmed Type Loratadine [Claritin] 10 mg PO DAILY 07/26/18 07/27/18 History Losartan Potassium 50 mg PO DAILY 07/26/18 07/27/18 History Montelukast Sodium [Montelukast 10 mg PO DAILY 07/26/18 07/27/18 History 10mg Tab] Pnv95/Iron Fum/Folic Acid 1 each PO DAILY 07/26/18 07/27/18 History [ Tablet] Sertraline HCl [Zoloft 50mg tablet] 50 mg PO DAILY 07/26/18 07/27/18 History Sitagliptin Phosphate [Januvia 100 mg PO DAILY 07/26/18 07/27/18 History 100mg tablet] dilTIAZem HCl [Cartia Xt] 120 mg PO DAILY 07/26/18 07/27/18 History glipiZIDE [Glipizide ER] 5 mg PO BID 07/26/18 07/27/18 History Levothyroxine Sodium 200 mcg PO DAILY 07/27/18 07/27/18 History [Levothyroxine 200mcg (0.2mg) Tab] Levothyroxine Sodium 50 mcg PO DAILY 07/27/18 07/27/18 History [Levothyroxine 50mcg (0.05mg) Tab] Metformin HCl [Metformin HCl ER] 1,000 mg PO BID 07/27/18 07/27/18 History Allergies Allergy/AdvReac Type Severity Reaction Status Date / Time latex Allergy Verified 07/26/18 11:37 Exam Vital signs and Labs for Last 24 Hours: Temp Pulse Resp BP Pulse Ox 97.4 F L 71 16 141/67 H 95 07/28/18 08:00 07/28/18 08:00 07/28/18 08:00 07/28/18 08:00 07/28/18 08:00 Laboratory Results - last 24 hr 07/27/18 16:28: POC Glucose 89 07/27/18 20:22: POC Glucose 108 07/28/18 06:13: POC Glucose 160 H 07/28/18 11:18: POC Glucose 152 H I & O for Last 24 hours: Intake & Output 07/25/18 07/26/18 07/27/18 07/28/18 23:59 23:59 23:59 23:59 Intake Total 620 / 620 4245 / 4245 2326 / 2326 Balance 620 / 620 4245 / 4245 2326 / 2326 Weight 146.765 kg 146.765 kg 146.765 kg Microbiology Reports for the Last 24 Hours: Microbiology 07/26/18 11:25 Urine,Clean Catch Urine Culture - Final Escherichia coli Internal Medicine - CN: Reslt - Labs CBC & Chem 7: 07/27/18 06:44 07/26/18 11:10 Assessment and Plan (1) Right lower quadrant abdominal pain Current visit: Yes Status: Acute Category: Medical Code(s): R10.31 - Right lower quadrant pain (2) Type 2 diabetes mellitus Current visit: Yes Status: Acute Category: Medical Code(s): E11.9 - Type 2 diabetes mellitus without complications (3) Morbid obesity Current visit: Yes Status: Acute Category: Medical Code(s): E66.01 - Morbid (severe) obesity due to excess calories (4) Hypertension Current visit: Yes Status: Acute Category: Medical Code(s): I10 - Essential (primary) hypertension (5) Nausea and vomiting Current visit: Yes Status: Acute Category: Medical Code(s): R11.2 - Nausea with vomiting, unspecified
--- NOTE | 2018-07-28 17:27 | Progress Note ---
Internal Medicine - PN: Subj *Date: 07/28/18 *Time: 17:26 Interval history: She was doing better early this morning. But she continues to have increasing right lower quadrant pain. She has some nausea. She is eating a little bit but does complain of worsening symptoms. Exam Vital signs and Labs for Last 24 Hours: Temp Pulse Resp BP Pulse Ox 97.7 F 80 18 153/80 H 90 L 07/28/18 15:43 07/28/18 15:43 07/28/18 15:43 07/28/18 15:43 07/28/18 15:43 Laboratory Results - last 24 hr 07/27/18 20:22: POC Glucose 108 07/28/18 06:13: POC Glucose 160 H 07/28/18 11:18: POC Glucose 152 H 07/28/18 16:38: POC Glucose 103 I & O for Last 24 hours: Intake & Output 07/26/18 07/27/18 07/28/18 07/29/18 11:59 11:59 11:59 11:59 Intake Total 2937 / 2937 4254 / 4254 1644 / 1644 Balance 2937 / 2937 4254 / 4254 1644 / 1644 Weight 307 lb 323 lb 9 oz 323 lb 8.983 oz Microbiology Reports for the Last 24 Hours: Microbiology 07/26/18 11:10 Blood Blood Culture - Preliminary NO GROWTH AFTER 48 HOURS 07/26/18 11:10 Blood Blood Culture - Preliminary NO GROWTH AFTER 48 HOURS 07/26/18 11:25 Urine,Clean Catch Urine Culture - Final Escherichia coli - Constitutional no acute distress Assessment and Plan (1) Right lower quadrant abdominal pain Current visit: Yes Status: Acute Category: Medical Code(s): R10.31 - Right lower quadrant pain (2) Type 2 diabetes mellitus Current visit: Yes Status: Acute Category: Medical Code(s): E11.9 - Type 2 diabetes mellitus without complications (3) Morbid obesity Current visit: Yes Status: Acute Category: Medical Code(s): E66.01 - Morbid (severe) obesity due to excess calories (4) Hypertension Current visit: Yes Status: Acute Category: Medical Code(s): I10 - Essential (primary) hypertension (5) Nausea and vomiting Current visit: Yes Status: Acute Category: Medical Code(s): R11.2 - Nausea with vomiting, unspecified - Assessment and plan all Dx Assessment and Plan for all problems:: Since she has increasing right lower quadrant pain this afternoon I am going to go ahead with a laparoscopy. We discussed the risks of surgery that includes bleeding, infection, injury to the bowel and bladder. We discussed the rare risk of laparotomy. Her mother and grandmother were present at the time of the discussion. Since she has eaten dinner we will go ahead with surgery in the morning. I will also remove her appendix. All questions were answered and consents were signed.
--- NOTE | 2018-07-29 07:20 | Progress Note ---
Subjective Patient reports: still having pain Exam Vital signs and Labs for Last 24 Hours: Temp Pulse Resp BP Pulse Ox 98.5 F 75 16 140/92 H 96 07/29/18 04:00 07/29/18 04:00 07/29/18 04:00 07/29/18 04:00 07/29/18 04:00 Laboratory Results - last 24 hr 07/26/18 : C. trachomatis (CANDI) Negative, N. gonorrhoeae (CANDI) Negative 07/28/18 11:18: POC Glucose 152 H 07/28/18 16:38: POC Glucose 103 07/28/18 20:40: POC Glucose 113 H 07/29/18 06:01: POC Glucose 94 I & O for Last 24 hours: Intake & Output 07/26/18 07/27/18 07/28/18 07/29/18 11:59 11:59 11:59 11:59 Intake Total 2937 / 2937 4254 / 4254 4220 / 4220 Balance 2937 / 2937 4254 / 4254 4220 / 4220 Weight 307 lb 323 lb 9 oz 323 lb 8.983 oz Microbiology Reports for the Last 24 Hours: Microbiology 07/26/18 11:10 Blood Blood Culture - Preliminary NO GROWTH AFTER 48 HOURS 07/26/18 11:10 Blood Blood Culture - Preliminary NO GROWTH AFTER 48 HOURS 07/26/18 11:25 Urine,Clean Catch Urine Culture - Final Escherichia coli - Constitutional no acute distress - *Routine Abdominal Exam Present: soft, tenderness Progress Note: A&P (1) Right lower quadrant abdominal pain Status: Acute Assessment and plan: Due to persistent/increasing pain, the patient has been scheduled to undergo diagnostic laparoscopy and likely appendectomy this morning. Current Visit: Yes (2) Type 2 diabetes mellitus Status: Acute Current Visit: Yes (3) Morbid obesity Status: Acute Current Visit: Yes (4) Hypertension Status: Acute Current Visit: Yes (5) Nausea and vomiting Status: Acute Current Visit: Yes
--- NOTE | 2018-07-29 07:34 | Progress Note ---
[facility] Anesthesia Checklist - Patient Identification Patient Identification: Arm Band, Verbal (Name & ) - Structural Data Admitted From: Inpatient Planned Operative Procedure/s: Diagnostic laparoscopy Consent for Planned Operative Procedure(s) Verified: Yes Verified Documents: Surgical Consent, History and Physical - NPO Status Verified Time NPO: 00:00 - Chart Verification Results Verified: CBC, HCG - Additional verifications Patient : No Anesthesia Reactions: No - Airway Assessment C-Spine Mobility Assessed: Yes (Thick neck) TMJ Mobility Assessed: Yes Dentition: Poor Dentition (Missing teeth) - Neurological Assessment Level of Consciousness: Awake Hx Seizures: No Numbness or tingling in extremities: No - Anesthesia Plan Anesthesia Risk discussed: Yes Anesthesia Plan: Verified ASA Class: III Anesthesia Type: General [facility] History I have reviewed the patient's past medical history: Yes Medical History: Reports:: Asthma, Depression, Diabetes Mellitus Type 2, Hypertension, Renal Disease Denies:: Cancer, Diabetes Mellitus Type 1, Internal Pacemaker, MRSA Other Medical History: Reports: Arthritis, Hypothyroidism, Other (super Morbid obesity) Other Surgeries: Yes: Cholecystectomy. No: Pacemaker Amputation: No Fractures: No - *Social History Educational Level: Attended College Smoking Status: Never smoker Alcohol Intake: never Occupational Status: employed Housing: house Household Members: significant other - Psychiatric History Expresses thoughts of harming self/others: None Suicide Plan Description: No Plan *Family Hx:: Asthma, Cancer, Diabetes, Heart Attack, Hyperlipidemia, Hypertension, Stroke
--- NOTE | 2018-07-29 09:11 | Operative Note ---
Date of procedure: 07/29/18 Pre-op Diagnosis:: Right lower quadrant pain possible appendicitis Post-op Diagnosis:: Right lower quadrant pain, possible appendicitis, inflammatory process of the peritoneum Procedure performed:: Diagnostic laparoscopy, laparoscopic appendectomy Surgeon:: Juan Antonio Weaver MD Vocal Teacher(s):: Dr. Garcia PILLAR MAN:: Other (Clint Delarosa) Anesthesia: GETA Estimated blood loss (mL): 25 Clinical Note:: She is a 23-year-old 1 para 0 young lady who was admitted through the ER with right lower quadrant pain. CT scan did not demonstrate any evidence of hepatitis. The CT scan also noted that there was no fluid in the pelvis. She had some follicles on her ovaries bilaterally. She really was getting better over the course of her admission and she did receive IV antibiotics. However last night she began to have increasing lower abdominal pain. She has had nauseating since admission. After having discussed the risks and benefits and given the fact that her right lower quadrant pain was increasing we elected to perform a diagnostic laparoscopy with possible appendectomy. Operative findings:: She had a normal-appearing uterus, ovaries and tubes. The ovaries had a somewhat polycystic appearance but otherwise appeared normal. They were not overly enlarged. The tubes appeared normal bilaterally there was a small hydatid of morganii adjacent to the right middle tube. There was a considerable amount of straw-colored free fluid in the pelvis. The rest of the abdomen appeared normal. The appendix was visualized and was hypervascular but otherwise normal. It did not appear to be stiff. There did not appear to be any active infection. Given the fact that she had this right lower quadrant pain over McBurney's we elected to perform a laparoscopic appendectomy. She has had a previous cholecystectomy. Operative note:: She was taken to the operating room where general anesthesia was found to be adequate. She was prepped and draped in the normal sterile fashion in the semilithotomy position. A weighted speculum was placed in the vagina and the anterior cervix was grasped with a tenaculum. A Tabitha uterine and the plate was easily placed into the uterine cavity and the balloon was insufflated. I changed gloves and then injected 10 cc of 0.5% ropivacaine around the umbilicus. I made a small incision within the umbilicus and inserted a Veress needle into the abdominal cavity. The abdominal cavity was then insufflated with carbon dioxide gas to a pressure of 20 mmHg. I then inserted a 12 mm trocar under direct vision. I injected through and through the pubic hairline, made a small incision here and inserted a 5 mm trocar under direct vision. I then identified the inferior epigastric arteries on the left side, went lateral to these and injected through and through. I made a small skin incision and then inserted another 5 mm trocar under direct vision. The findings were as previously dictated. We then elected to remove her appendix. I grasped the distal appendix and using harmonic scalpel I cut along the mesoappendix. This took the blood supply at the proximal end. After freeing up the appendix I then placed a 5 mm camera through the left lower quadrant port. Using the 12 mm port I placed a laparoscopic stapler. We clamped across the base of the appendix and making sure that all was clear we then fired the stapler. I then placed an Endo Catch bag in the 12 mm port and remove the appendix. We then changed back to the 11 mm camera and placed it through the umbilical port. The pelvis was then rinsed and all sites were seen to be hemostatic. We once again looked at the appendiceal base and it was hemostatic and had a good pedicle. We left approximately 100 cc of saline in the pelvis and then injected 30 cc of 0.5% ropivacaine into the pelvis. The secondary trochars were then removed under direct vision and the sites were hemostatic. The gas was let out of the abdomen and the primary trocar and camera were removed together. No bowel was seen to follow. The umbilical port was then closed deeply first with 2-0 Vicryl suture on the fascia then 2-0 Vicryl suture in the subcutaneous tissues. The skin was closed with running subcuticular 4-0 Monocryl suture. The millimeter trocar sites were closed with subcuticular 4-0 Monocryl suture. She tolerated the procedure well and was taken to the recovery room in excellent condition. All sponge instrument and needle counts were correct. The estimated blood loss was less than 25 cc. Condition: stable Disposition: PACU Specimens:: Appendix Complications:: None
--- NOTE | 2018-07-29 09:29 | Progress Note ---
[facility] Anesthesia Record Part I Intake, IV Amount: 700 Estimated blood loss (mL): 25 Urine output (mL): 0 Blood Products used (#): none Blood Pressure: 126/66 SaO2: 92 Pulse Rate: 65 Respiratory Rate: 16 Temperature: 97.8 F Patient is:: Awake, Stable Stable to PACU at:: 09:26
--- NOTE | 2018-07-29 09:30 | Progress Note ---
[facility] Anesthesia Record Part II Discharge Time: 09:56 Destination: Medical Surgical Department PACU nurse assessment reviewed?: Yes Patient Condition:: Good Anesthesia Complications:: None
--- NOTE | 2018-07-29 15:59 | Discharge Summary ---
General - General Admission date:: 07/26/18 Discharge date: 07/29/18 HPI HPI: She is a 23-year-old 1 para 0 who is not . She complains of a 3-month history of right lower quadrant pain. She says that today and she came into the ER. She had a CT scan that was essentially negative for appendicitis. There was no fluid in the pelvis. There were no cysts on the ovaries. She does not have a white count but her temperature has risen from 99-100 degrees. She has had some nausea associated with the right lower quadrant pain. She denies any new partners. Her partner denies any new partners. She has a history of having had her gallbladder removed. She has type 2 diabetes. She is morbidly obese. She has hypertension as well as a problem with her heart. She does not know what the problem is. She does take diltiazem for this. Hospital Course Hospital Course: She was started on IV antibiotics and initially had a low-grade temperature but this defervesced over the next couple of days. She had right lower quadrant pain that had shifted to the periumbilical area. Her white count was 10 and went to 9.5. She got better over the first 48 hours but then on the late afternoon of day 2 she began to have increased right lower quadrant pain. She had eaten that day so I elected to perform a diagnostic laparoscopy as well as appendectomy the next morning on 29 July 2018 since she had increasing pain and really was not getting much better. While hospitalized she also was seen by Dr. Ambriz in gastroenterology who thought she may have a functional bowel problem and he also agreed that it did not really seem like appendicitis. On July 29, 2018 she underwent a laparoscopy with laparoscopic appendectomy. She had a normal-appearing pelvis with a significant amount of straw-colored free fluid. There was no evidence of PID or other infectious process. The appendix appeared normal although slightly hypervascular. She has done well post surgery and has remained afebrile since. She is eating and she says her pain is improved although she still a little sore over her incisions. We will plan to send her home today and follow-up with her in 2 weeks time of my office. I have given her a prescription for Percocet 5/325 number 20 tablets as well as BuSpar to take for the next month as well. Hopefully she should start feeling better in the next couple of days once her incisional discomfort is gone. Her condition on discharge is stable. We have given the usual instructions with respect to limiting her activity, driving and sexual activity. Objective Vital signs: Temp Pulse Resp BP Pulse Ox 98.7 F 62 16 138/88 98 07/29/18 13:55 07/29/18 13:55 07/29/18 13:55 07/29/18 13:55 07/29/18 13:55 no acute distress - *Routine Abdominal Exam Present: soft, normoactive bowel sounds Results Labs on day of discharge: Labs from last 24 hours 07/29/18 07/29/18 07/28/18 11:47 06:01 20:40 POC Glucose 124 H 94 113 H C. trachomatis (CANDI) N. gonorrhoeae (CNADI) 07/28/18 07/26/18 16:38 Unknown POC Glucose 103 C. trachomatis (CANDI) Negative N. gonorrhoeae (CANDI) Negative Preliminary micro results at discharge 07/26/18 11:10 Blood Culture - Preliminary Blood NO GROWTH AFTER 48 HOURS 07/26/18 11:10 Blood Culture - Preliminary Blood NO GROWTH AFTER 48 HOURS DS: Diagnosis - Discharge Diagnosis (1) Right lower quadrant abdominal pain Status: Acute (2) Type 2 diabetes mellitus Status: Acute (3) Morbid obesity Status: Acute (4) Hypertension Status: Acute (5) Nausea and vomiting Status: Acute Discharge Plan - Patient Discharge Instructions ACTIVITY: No heavy lifting DIET: continue same diet Patient Instructions: How to Care for a Surgical Wound, DI for an Appendectomy, DI for Urinary Tract Infection (UTI), DI for Surgical Site Infection - Follow up Plan Disposition: Home, Self-Fpc Medications: Home Medications Medication Instructions Recorded Confirmed Type Loratadine [Claritin] 10 mg PO DAILY 07/26/18 07/27/18 History Losartan Potassium 50 mg PO DAILY 07/26/18 07/27/18 History Montelukast Sodium [Montelukast 10 mg PO DAILY 07/26/18 07/27/18 History 10mg Tab] Pnv95/Iron Fum/Folic Acid 1 each PO DAILY 07/26/18 07/27/18 History [ Tablet] Sertraline HCl [Zoloft 50mg tablet] 50 mg PO DAILY 07/26/18 07/27/18 History Sitagliptin Phosphate [Januvia 100 mg PO DAILY 07/26/18 07/27/18 History 100mg tablet] dilTIAZem HCl [Cartia Xt] 120 mg PO DAILY 07/26/18 07/27/18 History glipiZIDE [Glipizide ER] 5 mg PO BID 07/26/18 07/27/18 History Levothyroxine Sodium 200 mcg PO DAILY 07/27/18 07/27/18 History [Levothyroxine 200mcg (0.2mg) Tab] Levothyroxine Sodium 50 mcg PO DAILY 07/27/18 07/27/18 History [Levothyroxine 50mcg (0.05mg) Tab] Metformin HCl [Metformin HCl ER] 1,000 mg PO BID 07/27/18 07/27/18 History Prescriptions/Medication Reconciliation: New Oxycodone HCl/Acetaminophen [Percocet 5/325mg tablet] 1 - 2 tab PO Q4-6H PRN #20 tab PRN Reason: Severe Pain Buspirone HCl [Buspar 10mg tablet] 10 mg PO BID #60 tablet Continue Sitagliptin Phosphate [Januvia 100mg tablet] 100 mg PO DAILY Sertraline HCl [Zoloft 50mg tablet] 50 mg PO DAILY Montelukast Sodium [Montelukast 10mg Tab] 10 mg PO DAILY Losartan Potassium 50 mg PO DAILY Loratadine [Claritin] 10 mg PO DAILY glipiZIDE [Glipizide ER] 5 mg PO BID dilTIAZem HCl [Cartia Xt] 120 mg PO DAILY Metformin HCl [Metformin HCl ER] 1,000 mg PO BID Pnv95/Iron Fum/Folic Acid [ Tablet] 1 each PO DAILY Levothyroxine Sodium [Levothyroxine 50mcg (0.05mg) Tab] 50 mcg PO DAILY Levothyroxine Sodium [Levothyroxine 200mcg (0.2mg) Tab] 200 mcg PO DAILY
[2018-07-29 17:17] VITALS: BP 129/78
== END 2018-07-29 16:35 | disposition home or self-care (01) ==
LOC: ER 10:52 → 2ND 15:41
PROVIDERS: ADMIT Nurse Practitioner Obstetrics & Gynecology; ATTEND Nurse Practitioner Obstetrics & Gynecology